=== PATIENT | male | born 1990 | race Caucasian/White ===

== ENCOUNTER 2020-07-02 02:37 | Emergency (ER) | payer OTHER, SELFPAY ==
[2020-07-02 02:38] VITALS: BP 139/84; PULSE 73; RESP 15; TEMP 36.4; O2SAT 99; BMI 26.4
--- NOTE | 2020-07-02 02:44 | EDS_ITS ---
HPI History of Present Illness Chief Complaint: Laceration Narrative Narrative: Patient presents with a laceration to his right index finger posterior. Happened just prior to arrival at work. He cut it on a piece of metal. Came in after the bleeding started. Unsure last tetanus. Got the bleeding to stop. Current severity is mild. Able to move the finger normally [facility] Home Medications NK 07/02/20 [History Last Taken Unknown] Allergy/AdvReac Type Severity Reaction Status Date / Time No Known Allergies Allergy Verified 07/02/20 02:40 Social History Smoking Status: Current some day smoker ROS ROS ED ROS Narrative ROS General: Denies fever, chills, sweats Eyes: Denies visual changes, blurred vision, double vision ENT: Denies ear pain, rhinorrhea, sore throat Cardiovascular: Denies chest pain, palpitations, heart racing Respiratory: Denies dyspnea, cough, sputum, dyspnea on exertion, orthopnea,PND GI: Denies abdominal pain, nausea, vomiting, diarrhea, constipation, melena : Denies dysuria, hematuria, frequency Musculoskeletal: Denies myalgias, arthralgias, neck pain, back pain Skin: See HPI Neuro: Denies headache, weakness, paresthesia Psych: Denies depression, anxiety Endo: Denies polyuria, polydipsia, polyphagia Heme: Denies easy bruising, easy bleeding, lymphadenopathy Allergy: Denies hives, swelling EXAM Physical Exam Narrative Exam Narrative: Vital signs reviewed General: Well-nourished well-developed Head: Normocephalic atraumatic Eyes: Pupils equal round and reactive to light extraocular movements intact ENT: TMs clear no hemotympanum no trauma Neck: Nontender full range of motion Cardiovascular: Regular rate rhythm no murmurs normal S1-S2 Respiratory: No distress clear to auscultation bilaterally chest nontender Abdomen: Soft nontender nondistended normal bowel sounds no masses Back: Nontender no CVA tenderness Extremities: 2 cm laceration posterior middle phalanx region of the index finger. Superficial. No tendon involvement. Normal range of motion. Neuro alert oriented cranial nerves II through XII intact normal strength sensation reflexes Const Vital Signs: 07/02/20 02:38 Temperature 97.6 F L Temperature Source Temporal Pulse Rate 73 Respiratory Rate 15 Blood Pressure 139/84 H Blood Pressure Mean 102 Pulse Ox 99 Oxygen Delivery Method Room Air MDM MDM MDM Narrative Medical decision making narrative: Patient consented to suture repair of the wound. Given a tetanus shot prior. Wound was washed with chlorhexidine. Anesthetized with 3 cc of 1% lidocaine with good anesthesia. Washed with 500 cc of saline. Closed with simple suture x 4. Bandage applied as well as finger splint. We will follow-up as an outpatient in 2 weeks for suture removal. Discharge Plan Triage Chief Complaint: Laceration ED Provider: Jesus Shankar Dx/Rx/DC Orders Clinical Impression: Finger laceration Instructions: ED Laceration, Hand: All Closures Prescriptions: No Action NK RF: 0 Primary Care Provider: NOT,DEFINED Referrals: [facility] [GROUP OF PHYSICIANS] - (14 days) NOT,DEFINED [Primary Care Provider] - Disposition Disposition: Home, self care
[2020-07-02] MEDS: Lidocaine 1% (20 ml mdv) 20 ML Vial INFILT (02:49)
[2020-07-02] MEDS: Diphth,Pertuss(Acell),Tet Vac 0.5 ML Vial IM (02:49)
== END 2020-07-02 03:27 | disposition home or self-care (01) ==
LOC: ED 03:13
PROVIDERS: Emergency Provider Emergency Medicine
DX: S61.210A Laceration without foreign body of right index finger without damage to nail, initial encounter (principal); W26.8XXA Contact with other sharp object(s), not elsewhere classified, initial encounter; Y93.9 Activity, unspecified; Y92.9 Unspecified place or not applicable; F17.200 Nicotine dependence, unspecified, uncomplicated
CPT/HCPCS: 12001; 90715; 99284